=== PATIENT | male | born 1935 | race Caucasian/White ===

== ENCOUNTER 2016-06-26 09:00 | Observation (INO) | payer MEDICARE, BC ==
[2016-06-24 13:46] VITALS: BP 125/86
[2016-06-24 14:24] LABS: HEMOGLOBIN 13.4 g/dL (13.7-18.0)
[2016-06-24 14:27] LABS: BLOOD UREA NITROGEN 31 mg/dL (7-18)
[2016-06-24 14:32] LABS: ASPARTATE AMINO TRANSFERASE 35 U/L (15-37)
[~2016-06-26] VITALS: Ht 182.9 cm; Wt 88.2 kg
[~2016-06-26 09:00] MED LIST: IRON PO; LOSA1TAB16 PO; METO-99 PO; RIVA20TA PO; SIMV40TA3 PO; TYLENOL PM PO
[2016-06-26] MEDS: SODIUM CHLORIDE 0.9% 1,000 ML IV SCH ×2 (10:01→18:01)
[2016-06-26] MEDS ORDERED: CEFAZOLIN 1,000 MG ONE (10:15)
[2016-06-26] MEDS ORDERED: CEFAZOLIN PMX 1GM/50ML 50 ML ONE (10:15)
[2016-06-26] MEDS ORDERED: MIDAZOLAM 1 MG/ML, 5ML ONE (10:15)
[2016-06-26] MEDS ORDERED: LIDOCAINE 2%, 20ML ONE (10:15)
[2016-06-26] MEDS ORDERED: FENTANYL PF 100 MCG/2ML ONE (10:15)
[2016-06-26] MEDS ORDERED: CEFAZOLIN PMX 1GM/50ML 50 ML IVPB ONE (10:30)
[2016-06-26] MEDS ORDERED: ZOLPIDEM 5MG TABLET PO PRN (11:30)
[2016-06-26 11:36] VITALS: BP 139/94
[2016-06-26] MEDS: HYDROcodone/APAP 5/325 TABLET PO PRN ×2 (13:04→19:37)
[2016-06-26 13:30] VITALS: BP 136/97
[2016-06-26 14:33] VITALS: BP 107/73
[2016-06-26] MEDS: METOPROLOL TARTRATE 100 MG TABLET PO SCH ×2 (14:33→21:26)
[2016-06-26] MEDS ORDERED: RIVAROXABAN 20 MG TABLET PO SCH (17:00)
[2016-06-26] MEDS: CEFAZOLIN PMX 1GM/50ML 50 ML IVPB SCH (17:18)
[2016-06-26 18:44] VITALS: BP 116/77
[2016-06-26] MEDS ORDERED: SIMVASTATIN 40 MG TABLET PO SCH (21:00)
[2016-06-26] MEDS: SODIUM CHLORIDE FLUSH 10ML SYR IVF SCH (21:26)
[2016-06-27] MEDS: HYDROcodone/APAP 5/325 TABLET PO PRN ×2 (01:31→05:58)
[2016-06-27] MEDS: CEFAZOLIN PMX 1GM/50ML 50 ML IVPB SCH ×2 (01:31→09:00)
[2016-06-27 01:34] VITALS: BP 120/78
[2016-06-27] MEDS: SODIUM CHLORIDE 0.9% 1,000 ML IV SCH ×2 (02:01→10:01)
[2016-06-27] MEDS: METOPROLOL TARTRATE 100 MG TABLET PO SCH (05:58)
[2016-06-27] MEDS ORDERED: HYDR-3240 PO (08:10)
[2016-06-27 08:14] VITALS: BP 120/81
[2016-06-27] MEDS: SODIUM CHLORIDE FLUSH 10ML SYR IVF SCH (08:37)
[2016-06-27] MEDS ORDERED: LOSARTAN 50MG TABLET PO SCH (09:00)
[2016-06-27] MEDS ORDERED: FERROUS GLUCONATE 324 MG TABLET PO SCH (09:00)
[2016-06-27] MEDS ORDERED: HYDROCHLOROTHIAZIDE 12.5 MG CAPSULE PO SCH (09:00)
== END 2016-06-27 11:51 | disposition home or self-care (01) ==
LOC: CACL 09:00 → ORIP 11:10 → 5SO 12:31
PROVIDERS: ADMIT Internal Medicine Cardiovascular Disease; ATTEND Internal Medicine Cardiovascular Disease
DX: I49.5 Sick sinus syndrome (principal); I48.2 Chronic atrial fibrillation; I10 Essential (primary) hypertension; E78.5 Hyperlipidemia, unspecified; C67.9 Malignant neoplasm of bladder, unspecified
CPT/HCPCS: 33207; 36415; 71010; 71020; 80053; 85025; 85610; 93005; 96365; 96366; C1779; C1786; C1892; G0378; J0690; J2250; J3010; J3490